=== PATIENT | male | born 1965 | race Caucasian/White ===

== ENCOUNTER 2017-07-23 11:54 | Emergency (ER) | payer OTHER ==
[~2017-07-23] VITALS: Ht 172.7 cm; Wt 70.8 kg
[2017-07-23 11:54] VITALS: BP 130/78
[2017-07-23] MEDS ORDERED: KETOROLAC TROMETHAMINE INJ 60 MG/2 ML VIAL IM ONE (12:30)
[2017-07-23] MEDS ORDERED: KETOROLAC TROMETHAMINE INJ 30 MG/ML VIAL ONE (12:36)
== END 2017-07-23 12:53 | disposition home or self-care (01) ==
LOC: ER 11:56
DX: J02.0 Streptococcal pharyngitis (principal); F20.9 Schizophrenia, unspecified; F32.9 Major depressive disorder, single episode, unspecified; I50.9 Heart failure, unspecified; F10.10 Alcohol abuse, uncomplicated; F17.200 Nicotine dependence, unspecified, uncomplicated; Z59.0 Homelessness
CPT/HCPCS: 96372; 99283; A4606; J1885; Z7610

== ENCOUNTER 2018-09-25 19:29 | Emergency (ER) | payer OTHER ==
[~2018-09-25] VITALS: Ht 172.7 cm; Wt 70.8 kg
[2018-09-25 19:43] VITALS: BP 127/79
== END 2018-09-25 20:09 | disposition home or self-care (01) ==
LOC: ER 19:29
DX: J02.9 Acute pharyngitis, unspecified (principal); L03.312 Cellulitis of back [any part except buttock and flank]; F32.9 Major depressive disorder, single episode, unspecified; F20.9 Schizophrenia, unspecified; I50.9 Heart failure, unspecified; F17.200 Nicotine dependence, unspecified, uncomplicated